=== PATIENT | male | born 1990 | race Caucasian/White ===

== ENCOUNTER 2021-11-01 22:49 | Emergency (ER) | payer BC ==
[~2021-11-01] VITALS: Ht 175.3 cm; Wt 74.8 kg
--- NOTE | 2021-11-02 01:31 | NUR ---
Patient discharged to home in stable condition. Written and verbal after care instructions given. Patient verbalizes understanding of instruction.
--- NOTE | 2021-11-02 01:31 | NUR ---
WRIST SPLINT APPLIED.
[2021-11-02 01:32] VITALS: BP 121/66
[2021-11-02] MEDS ORDERED: NAPR-1192 PO (01:32)
== END 2021-11-02 01:37 | disposition home or self-care (01) ==
LOC: ER 23:06
DX: S69.92XA Unspecified injury of left wrist, hand and finger(s), initial encounter (principal); R22.32 Localized swelling, mass and lump, left upper limb; V00.311A Fall from snowboard, initial encounter; Y93.23 Activity, snow (alpine) (downhill) skiing, snowboarding, sledding, tobogganing and snow tubing; Y92.89 Other specified places as the place of occurrence of the external cause; Y99.8 Other external cause status
CPT/HCPCS: 73110